=== PATIENT | female | born 1940 | race Caucasian/White ===

== ENCOUNTER 2017-11-12 14:39 | Emergency (ER) | payer OTHER ==
[~2017-11-12] VITALS: Ht 162.6 cm; Wt 86.3 kg
[~2017-11-12 14:39] MED LIST: ALDACTONE25 MG PO; AMARYL2 MG PO; ASPIR 8181 M1 PO; ASPIRIN81 M1 PO; BABY ASPIRIN81 M1 PO; CALCIUM600 MG PO; CARVEDILOL25 MG PO; CARVEDILOL6.25 MG PO; CELEXA40 MG PO; CIPRO500 MG PO; CITALOPRAM HBR40 MG PO; COLACE100 MG PO; COREG25 M1 PO; Coreg PO; DIAZEPAM2 MG PO; FENTANYL1 EAC1 TD; FISH OIL 1,0001 EAC7 PO; FISH OIL 1,0001 EAC8 PO; FLONASE16 G1 BOTH NARES; GLIMEPIRIDE2 MG PO; GLUCOPHAGE500 MG PO; GLYBURIDE; K-DUR10 ME1 PO; K-DUR10 ME2 PO; K-DUR20 MEQ PO; KLOR-CON M2020 MEQ PO; LASIX20 MG PO; LASIX40 MG PO; LISINOPRIL2.5 MG PO; LO-DOSE ASPIRIN81 M1 PO; MEXILETINE HCL150 MG PO; MEXITIL150 MG PO; MEXITIL200 MG PO; OMEGA 3-6-9 11200 MG PO; OMEGA-31000 M1 PO; POTASSIUM CHLO10 ME3 PO; PROTONIX40 MG PO; TAMSULOSIN HCL0.4 MG PO; TORADOL10 MG PO; TRAZODONE; TRAZODONE HCL50 MG PO; ZANTAC150 MG PO; ZESTRIL,PRINIV2.5 MG PO
[2017-11-12] MEDS ORDERED: VALACYCLOVIR1000 MG PO (16:46)
[2017-11-12 17:00] VITALS: BP 120/79
== END 2017-11-12 17:01 | disposition home or self-care (01) ==
LOC: EME 14:39
DX: B02.9 Zoster without complications (principal); I11.0 Hypertensive heart disease with heart failure; I50.9 Heart failure, unspecified; E11.9 Type 2 diabetes mellitus without complications; J44.9 Chronic obstructive pulmonary disease, unspecified; K21.9 Gastro-esophageal reflux disease without esophagitis; F41.9 Anxiety disorder, unspecified; F32.9 Major depressive disorder, single episode, unspecified; Z79.82 Long term (current) use of aspirin; Z79.84 Long term (current) use of oral hypoglycemic drugs; Z95.810 Presence of automatic (implantable) cardiac defibrillator; Z96.651 Presence of right artificial knee joint; Z90.49 Acquired absence of other specified parts of digestive tract; Z90.710 Acquired absence of both cervix and uterus; Z88.5 Allergy status to narcotic agent; Z88.1 Allergy status to other antibiotic agents; Z88.0 Allergy status to penicillin; Z91.048 Other nonmedicinal substance allergy status; Z91.041 Radiographic dye allergy status; Z88.8 Allergy status to other drugs, medicaments and biological substances
CPT/HCPCS: 99281; 99283